=== PATIENT | male | born 1990 | race African-American/Black ===

== ENCOUNTER 2017-06-12 10:32 | Emergency (ER) | payer SELFPAY ==
--- NOTE | 2017-06-12 11:10 | ED Physician Documentation ---
Ankle Injury - VITAL SIGNS Vital Signs: Vital Signs Temp Pulse Resp BP Pulse Ox 98.6 F 72 20 145/65 95 06/12/17 11:00 06/12/17 11:00 06/12/17 11:00 06/12/17 11:00 06/12/17 11:00 <Danita Cordova - Last Filed: 06/12/17 11:58> - HISTORIAN Historian: patient - HPI Stated Complaint: right ankle and foot pain Chief Complaint: Lower Extremity Injury (and foot ) Onset: days ago (1) Where: work Severity: moderate r: twist, wearing shoes Associated Symptoms:: tingling, swelling Modifying Factors:: pain on movement Further Comments: yes (he has not noted any severe pain but with movement he notes increased sharp pain on both foot and ankle did note swelling on lateral side of foot) - ROS CONST: no problems CVS/RESP: none - PAST HX Past History: none Immunizations: referred to PCP - SOCIAL HX Smoking History: cigarettes Alcohol Use: none Drug Use: none - FAMILY HX Family History: none - REVIEWED ASSESSMENTS Nursing Assessment Reviewed: Yes Vitals Reviewed: Yes <Joshua Fox - Last Filed: 06/12/17 12:15> - PAST HX Allergies/Adverse Reactions: Allergies Allergy/AdvReac Type Severity Reaction Status Date / Time No Known Allergies Allergy Verified 06/12/17 10:59 Home Medications: Ambulatory Orders Medication Instructions Recorded Naproxen [Naprosyn] 500 mg PO BID PRN #30 tablet 06/12/17 ED Results Lab/Radiology - Orders Orders: ED Orders Category Date Time Status ANKLE 3 VIEWS OR MORE [RAD] Stat Exams 06/12/17 Ordered FOOT 3 VIEWS OR MORE [RAD] Stat Exams 06/12/17 11:06 Ordered <Danita Cordova - Last Filed: 06/12/17 11:58> - Orders Orders: ED Orders Category Date Time Status ANKLE 3 VIEWS OR MORE [RAD] Stat Exams 06/12/17 Ordered FOOT 3 VIEWS OR MORE [RAD] Stat Exams 06/12/17 11:06 Ordered <Joshua Fox - Last Filed: 06/12/17 12:15> Ankle Injury Physical Exam - Physical Exam General Appearance: no acute distress Foot: right foot: limited range of motion, pain, soft tissue tenderness, swelling, left foot: non-tender, normal inspection, normal range of motion, no evidence of injury Ankle: right: bone tenderness (right lateral mid foot ), limited range of motion (right lateral internal rotation ), pain (with palpation on lateral and midfoot ankle lateral ), swelling, left: non-tender, normal inspection, normal range of motion, N/A: no evidence of injury, abrasions/laceration, deformity, ecchymosis, nodules, soft tissue tenderness <Danita Cordova - Last Filed: 06/12/17 11:58> - Physical Exam Neuro: sensation nml, motor nml <Joshua Fox - Last Filed: 06/12/17 12:15> Discharge Decision to Admit: NO Date of Decison to Admit: 06/12/17 Decision Time: 11:59 <Danita Cordova - Last Filed: 06/12/17 11:58> <Joshua Fox - Last Filed: 06/12/17 12:15> Clincal Impression: Foot pain, right Prescriptions: Naproxen [Naprosyn] 500 mg PO BID PRN #30 tablet PRN Reason: Pain Referrals: Primary Doctor,No [Primary Care Provider] - 2 Days Home Medications: Ambulatory Orders Naproxen [Naprosyn] 500 mg PO BID PRN #30 tablet 06/12/17 Condition: Stable Disposition: 01 HOME, SELF-CARE
[2017-06-12 12:35] VITALS: BP 145/70
--- NOTE | 2017-06-12 15:43 | Diagnostic Imaging Report ---
SONYA TROTTER [facility] [address] [facility].[address] [address] Report Submission Date: Jun 12, 2017 11:49:53 AM CDT Patient Study Name: STEF MARTELL Date: Jun 12, 2017 11:09:21 AM CDT Modality Type: CR Gender: M Description: LOWER EXTREMITY : 89 Institution: [facility] Physician: SONYA TROTTER Examination: Plain film ankle History: Ankle discomfort. Findings: 3 views of the ankle demonstrates normal cortical margins. No fracture or dislocation. Talar dome is intact. No soft tissue swelling. No joint effusion. Impression: No acute osseous process. Electronically signed on Jun 12, 2017 11:49:53 AM CDT by: Esvin HO
--- NOTE | 2017-06-12 15:44 | Diagnostic Imaging Report ---
SONYA TROTTER [facility] [address] [facility].[address] [address] Report Submission Date: Jun 12, 2017 11:51:07 AM CDT Patient Study Name: STEF MARTELL Date: Jun 12, 2017 11:05:51 AM CDT Modality Type: CR Gender: M Description: LOWER EXTREMITY : 92 Institution: [facility] Physician: SONYA TROTTER Examination: Plain film foot History: Discomfort Findings: 3 views of the foot demonstrates normal cortical margins. No fracture or dislocation. No soft tissue swelling. No joint effusion. Impression: No acute osseous process. Electronically signed on Jun 12, 2017 11:51:07 AM CDT by: Esvin HO
== END 2017-06-12 12:20 | disposition home or self-care (01) ==
LOC: ED 10:32
DX: M79.671 Pain in right foot (principal)
CPT/HCPCS: 73610; 73630; L4350; 99283

== ENCOUNTER 2019-01-01 13:36 | Emergency (ER) | payer SELFPAY ==
--- NOTE | 2019-01-01 13:54 | ED Physician Documentation ---
General Adult - HISTORIAN Historian: patient - HPI Stated Complaint: vomiting Chief Complaint: General Adult Additional Information: Patient presents to ED with a vomiting x 10 since this morning. He reports his symptoms woke him up from sleep this morning. He admits chills, periumbilical pain with vomiting. Denies diarrhea, hemataemesis. Onset: hours (12) Timing: still present Severity: moderate - ROS CONST: denies: fever EYES/ENT: none CVS/RESP: denies: shortness of breath GI/: abdominal pain, vomiting, nausea. denies: diarrhea MS/SKIN/LYMPH: none NEURO/PSYCH: headache - PAST HX Past History: none Other History: none Surgeries/Procedures: none Allergies/Adverse Reactions: Allergies Allergy/AdvReac Type Severity Reaction Status Date / Time No Known Allergies Allergy Verified 01/01/19 14:04 Home Medications: Ambulatory Orders Medication Instructions Recorded Promethazine HCl [Phenergan] 25 mg PO Q6 PRN #30 tablet 01/01/19 - SOCIAL HX Smoking History: non-smoker Alcohol Use: none Drug Use: none - FAMILY HX Family History: No - VITAL SIGNS Vital Signs: Vital Signs Temp Pulse Resp BP Pulse Ox 145/70 06/12/17 12:32 - REVIEWED ASSESSMENTS Nursing Assessment Reviewed: Yes Vitals Reviewed: Yes ED Results Lab/Radiology - Radiology Radiology Impressions: Report Submission Date: Jan 01, 2019 3:30:21 PM CDT Patient Study Name: STEF MARTELL Date: Jan 01, 2019 2:42:35 PM CDT Modality Type: CT\SR Gender: M Description: CT ABD PELVIS W/O CO : 92 Institution: [facility] Physician: AZUL ALMANZAR EXAMINATION: CT ABD PELVIS W/O CO HISTORY: vomiting TECHNIQUE: CT of the abdomen and pelvis was performed without contrast according to standard protocol. COMPARISON: None FINDINGS: The aorta is normal in caliber. The visible lung bases are clear. The heart size is normal. The liver appears normal. There is a fluid-fluid level in the gallbladder, likely representing sludge. No gallstone is identified. The intrahepatic and extrahepatic bile ducts are nondilated. The spleen, pancreas, and adrenal glands appear normal. The kidneys kidneys are normal in size. There is no evidence of renal calculus or hydronephrosis. The distal esophagus and stomach appear normal. The small bowel and colon are normal in caliber without evidence of wall thickening or obstruction. The appendix appears normal. No free air or free fluid is identified in the abdomen. There is no abdominal lymphadenopathy. The urinary bladder is distended with fluid and appears normal. The prostate appears normal. No free fluid is seen in the pelvis. Bone windows demonstrate no suspicious lytic or blastic lesions. The visible osseous structures are intact. IMPRESSION: 1. No acute process identified in the abdomen or pelvis. Electronically signed on Jan 01, 2019 3:30:21 PM CDT by: Hakan Smith - Orders Orders: ED Orders Category Date Time Status Place IV Lock 1T Care 01/01/19 13:51 Ordered CBC/PLATELET/DIFF Routine Lab 01/01/19 Ordered CMP Routine Lab 01/01/19 Ordered LIPASE Stat Lab 01/01/19 Ordered NORMAL SALINE @ 1000 MLS/HR ( 1000ml BOLUS) Med 01/01/19 13:51 Ordered 0.9 % Sodium Chloride [Normal Saline] 1,000 ml IV Q1H Ondansetron HCl/Pf [Zofran] Med 01/01/19 13:52 Once 4 mg IVP NOW ONE General Adult Physical Exam - PHYSICAL EXAM GENERAL APPEARANCE: no distress EENT: AUDREY NECK: supple RESPIRATORY: no resp distress, breath sounds normal CVS: reg rate & rhythm ABDOMEN: soft, normal bowel sounds BACK: no CVA tenderness SKIN: warm/dry, normal color EXTREMITIES: non-tender NEURO: oriented X3, motor nml Discharge Clincal Impression: Gastroenteritis Prescriptions: Promethazine HCl [Phenergan] 25 mg PO Q6 PRN #30 tablet PRN Reason: nausea/vomiting Referrals: Primary Doctor,No [Primary Care Provider] - 2 Days Additional Instructions: 1. Tylenol and/or Ibuprofen as needed for pain 2. Promethazine as needed for nausea 3. Drink plenty of fluids to maintain proper hydration 4. Follow up with PCP within 1 week 5. Return to ER for new or worsening symptoms Condition: Stable Disposition: 01 HOME, SELF-CARE Decision to Admit: NO Date of Decison to Admit: 01/01/19 Decision Time: 15:37
[2019-01-01] MEDS: 0.9 % SODIUM CHLORIDE 1,000 ML IV ONE ×2 (14:05→15:00)
[2019-01-01] MEDS: ONDANSETRON HCL/PF 4 MG/ 2ML VIAL IVP ONE (14:05)
[2019-01-01 14:10] LABS: BASOPHILS % 1.7 (0.0-1.5); EOSINOPHILS % 2.7 % (0.0-6.8); MEAN CORPUSCULAR HEMOGLOBIN 31.8 pg (28.0-34.0); MONOCYTES % 4.2 % (0.0-11.0); NEUTROPHILS # 8.8 # k/uL (1.4-7.7)
[2019-01-01] MEDS: KETOROLAC TROMETHAMINE 30 MG/1ML VIAL IV ONE (14:25)
[2019-01-01 14:26] LABS: eGFR (Non-African) > 60
[2019-01-01] MEDS: PROMETHAZINE HCL 25 MG in 0.9 % SODIUM CHLORIDE 50 ML IV ONE (15:00)
[2019-01-01] MEDS: 0.9 % SODIUM CHLORIDE(MINIBAG+ 50 ML IV ONE (15:07)
[2019-01-01 16:15] VITALS: BP 139/81
--- NOTE | 2019-01-01 20:41 | Diagnostic Imaging Report ---
AZUL ALMANZAR [facility] [address] [facility] [address] [place], [place]. [address] Report Submission Date: Jan 01, 2019 3:30:21 PM CDT Patient Study Name: STEF MARTELL Date: Jan 01, 2019 2:42:35 PM CDT Modality Type: CT\SR Gender: M Description: CT ABD PELVIS W/O CO : 92 Institution: [facility] Physician: AZUL ALMANZAR EXAMINATION: CT ABD PELVIS W/O CO HISTORY: vomiting TECHNIQUE: CT of the abdomen and pelvis was performed without contrast according to standard protocol. COMPARISON: None FINDINGS: The aorta is normal in caliber. The visible lung bases are clear. The heart size is normal. The liver appears normal. There is a fluid-fluid level in the gallbladder, likely representing sludge. No gallstone is identified. The intrahepatic and extrahepatic bile ducts are nondilated. The spleen, pancreas, and adrenal glands appear normal. The kidneys kidneys are normal in size. There is no evidence of renal calculus or hydronephrosis. The distal esophagus and stomach appear normal. The small bowel and colon are normal in caliber without evidence of wall thickening or obstruction. The appendix appears normal. No free air or free fluid is identified in the abdomen. There is no abdominal lymphadenopathy. The urinary bladder is distended with fluid and appears normal. The prostate appears normal. No free fluid is seen in the pelvis. Bone windows demonstrate no suspicious lytic or blastic lesions. The visible osseous structures are intact. IMPRESSION: 1. No acute process identified in the abdomen or pelvis. Electronically signed on Jan 01, 2019 3:30:21 PM CDT by: Hakan HO
== END 2019-01-01 16:00 | disposition home or self-care (01) ==
LOC: ED 13:36
DX: K52.9 Noninfective gastroenteritis and colitis, unspecified (principal)
CPT/HCPCS: 36415; 74176; 80053; 83690; 85025; 96365; 96375; 99283; 99284; J1885; J2405; J2550; J7030; S1016

== ENCOUNTER 2019-09-28 12:50 | Emergency (ER) | payer SELFPAY ==
--- NOTE | 2019-09-28 12:59 | ED Physician Documentation ---
General Adult - HISTORIAN Historian: patient - HPI Stated Complaint: inflammation R eyelid Chief Complaint: General Adult Onset: days ago Timing: still present Severity: moderate Further Comments: yes (Pt is a 28 yo male with a sty on his R eye.) - ROS CONST: no problems EYES/ENT: other (inflammation R eyelid) CVS/RESP: none GI/: none MS/SKIN/LYMPH: other (inflammation R eyelid) - PAST HX Past History: none Allergies/Adverse Reactions: Allergies Allergy/AdvReac Type Severity Reaction Status Date / Time No Known Allergies Allergy Verified 09/28/19 13:02 Home Medications: Ambulatory Orders Medication Instructions Recorded NK 09/28/19 - SOCIAL HX Smoking History: cigarettes - FAMILY HX Family History: No - VITAL SIGNS Vital Signs: Vital Signs Temp Pulse Resp BP Pulse Ox 139/81 01/01/19 16:00 - REVIEWED ASSESSMENTS Nursing Assessment Reviewed: Yes Vitals Reviewed: Yes Progress - Progress Progress: Rx Keflex 500 mg. Take one every 8 hours for 7 to 10 days. Rx Polymyxin/Trimethoprim ophthalmic drops. One drop in Right eye every 3 hours for 7 days. Maximum 6 drops/day. Warm compresses to eye 4x/daily General Adult Physical Exam - PHYSICAL EXAM GENERAL APPEARANCE: mild distress EENT: other (inflammation of R eyelid, ? early stye) NECK: normal inspection, supple RESPIRATORY: no resp distress, chest non-tender CVS: reg rate & rhythm, heart sounds normal BACK: normal inspection SKIN: other (inflammation R eyelid) NEURO: oriented X3, motor nml, sensation nml Discharge Clincal Impression: Inflammation of right eyelid Referrals: Primary Doctor,No [Primary Care Provider] - Condition: Stable Disposition: 01 HOME, SELF-CARE Decision to Admit: NO Decision Time: 13:12
[2019-09-28 13:02] VITALS: BP 115/73
== END 2019-09-28 13:32 | disposition home or self-care (01) ==
LOC: ED 12:50
DX: H01.9 Unspecified inflammation of eyelid (principal)
CPT/HCPCS: 99283; 99284